=== PATIENT | female | born 1965 | race Caucasian/White ===

== ENCOUNTER → 2022-08-25 | Outpatient (CLI) | payer BC, SELFPAY ==
--- NOTE | 2022-08-25 10:19 | MRI_ITS ---
INDICATION: Palpable mass of left upper forehead marked with bb EXAMINATION: MRI - MR Face Neck Orbit WO/W Contrast TECHNIQUE: Multiplanar and multisequence MR images of the face pre and post IV contrast with vitamin E marker area at the left frontal area of clinical concern. IV Contrast Dosage and Agent: Unspecified volume and type of gadolinium. COMPARISON: None. FINDINGS: Vitamin E capsule noted over the left anterolateral frontal bone, slightly compressing the scalp without evidence of underlying superficial scalp soft tissue mass or edema. Underlying calvarium is normal in appearance with typical posterior lateral angulation of the bony calvarium at this point. No hyperostosis or periostitis. Underlying brain parenchyma is normal in appearance. No abnormal intraparenchymal mass. No abnormal dural thickening or abnormal enhancement. No hydrocephalus. MRI/Orbit Face Neck W/WO Contrast IMPRESSION: No evidence of scalp, osseous, brain parenchymal or meningeal mass at the area of clinical concern. Vitamin E marker overlies typical posterior lateral osseous convexity of the anterior frontal bone. If the palpable mass is a soft cutaneous mass then would consider ultrasound with standoff gel to avoid compression of the superficial soft tissues. Electronically Signed: Colby Parrish MD at 7:30 EDT ,
== END | disposition home or self-care (01) ==
LOC: MRI 10:18
PROVIDERS: PCP Physician Assistant; Referring Provider Plastic Surgery; Visit Provider Plastic Surgery
DX: D48.1 Neoplasm of uncertain behavior of connective and other soft tissue (principal)
CPT/HCPCS: 70543; A9575

== ENCOUNTER 2022-09-15 09:18 | Day surgery (SDC) | payer BC, SELFPAY ==
[2022-09-15] VITALS (8 sets, daily range): BP systolic 109–125; BP diastolic 67–79; PULSE 64–80; RESP 16–18; TEMP 36.1–36.5; O2SAT 94–98; BMI 29.9
--- NOTE | 2022-09-15 09:39 | PCM.HP.BLA ---
History and Physical Date of Admission: 09/15/22 The previous H&P of 08/30/22 is reviewed. There are no changes to the findings. Assessment & Plan Assessment/Plan (1) Neoplasm of uncertain behavior of skin: PLAN: Plan For excision lesion right cheek.
[2022-09-15] MEDS: Lidocaine 1% /Epi 1:100 9 ML, Sodium Bicarbonate 1 MEQ OPERA.SITE (10:10)
[2022-09-15] MEDS: Povidone Iodine 30 ML Opthalmic Sol 1 DRP (10:10)
--- NOTE | 2022-09-15 10:29 | DCINST_ITS ---
Discharge Instructions Diet Discharge Diet: No restrictions Activity Discharge Activity: Return to Normal Activity Dressing / Incision Additional Dressing/Incision Instructions:: Keep your back elevated (recliner position) for the next 2-3 nights to prevent bruising and swelling. Take the oral antibiotic (Keflex) 2 x a day until finished. Keep the steri-strips dry. Keep them in place until seen in the office. Follow Up Care Please Follow Up With: Huma Santos MD When: 1-2 weeks Test Results: Test results from this visit will be discussed in further detail at your follow- up appointment, if applicable. Discharge Plan Admission Attending Provider: Huma Santos Primary Care Provider: Maggie Hernandes Discharge Orders/Prescriptions Prescriptions: No Action NK Referrals / Follow Up: Maggie Hernandes PA [Primary Care Provider] - Disposition Disposition (needs filled in before D/C Order can be placed): Home, Self Care
--- NOTE | 2022-09-15 10:32 | PCM.OPRPT ---
Problems Associated Problem List Diagnoses (1) Neoplasm of uncertain behavior of skin: Report of Operation Date of Procedure: 09/15/22 Pre-Operative Diagnosis: Neoplasm uncertain behavior right cheek Post-Operative Diagnosis: same Surgery/Procedure Performed:: Excision lesion right cheek (1.3 cm) with intermediate closure Surgeon: Huma Santos Type of Anesthesia: Local Specimen's removed: above Estimated Blood Loss (mL): minimal Description of Procedure: The procedure of excision lesion right cheek was reviewed with the patient. She is marked in the preop holding area prior to surgery. The patient was brought to the operating room and placed on the operating room table in the supine position. The face is prepped and draped in the usual sterile fashion. 1% Xylocaine with epinephrine used for local anesthetic. Following this, the site is elliptically excised and passed off the operative field to be sent to pathology. Hemostasis is controlled with cautery. The incision is then closed in layers with 0 Vicryl suture in the subcutaneous tissue and dermis. Skin edges were approximated with a running subcuticular Vicryl suture. Further reinforcement the closure was done with interrupted Prolene suture. Dermabond and Steri-Strips were placed on the site. She tolerated the procedure well and was taken to the recovery area in an awake and stable condition. Needle and sponge counts are correct. Complications none
--- NOTE | 2022-09-15 10:43 | DCINST_ITS ---
Discharge Instructions Diet Discharge Diet: No restrictions Dressing / Incision Additional Dressing/Incision Instructions:: Keep your back elevated (recliner position) for the next 2-3 nights to prevent bruising and swelling. Take the oral antibiotic (Keflex) 2 x a day until finished. Keep the steri-strips dry. Keep them in place until seen in the office. Follow Up Care Please Follow Up With: Huma Santos MD Test Results: Test results from this visit will be discussed in further detail at your follow- up appointment, if applicable. Discharge Plan Admission Attending Provider: Huma Santos Primary Care Provider: Maggie Hernandes Discharge Orders/Prescriptions Prescriptions: New cephalexin 500 mg capsule 500 mg PO BID 7 Days Qty: 14 0RF Referrals / Follow Up: Maggie Hernandes PA [Primary Care Provider] - Disposition Disposition (needs filled in before D/C Order can be placed): Home, Self Care
--- NOTE | 2022-09-15 11:30 | LES_PTH ---
PATIENT: SYMONE CONNORS [place] [facility] [place][id number] AGE/SX: 56/F ROOM: RE09/15/[address]: Dr. Huma Santos MD : 1965 BED: DIS: 09/15/2022 SPEC #: [id number] RECD: 09/15/22 14:24 STATUS: VLAD KOTA #: [id number] GWEN: 09/15/22 11:[address]: Huma Santos DEPT: SURGICAL PATHOLOGY RECD BY: Lasha Conklin ENTERED: 09/18/22 08:12 SP TYPE: Lesion OTHR DR: MELISSA Enrique Tissues: Skin of face, NOS Procedures: Surgery Specimen Level IV HEADER OPERATION: Excision cheek lesion PRE-OP DIAGNOSIS: Neoplasm TISSUE SUBMITTED: Lesion right cheek MICROSCOPIC DIAGNOSIS Lesion of right cheek, biopsy: Intradermal nevus. Solar elastosis. AM:theodore 09/19/2022 MICROSCOPIC DESCRIPTION Slides are reviewed. GROSS DESCRIPTION Received in fixative is one container labeled with the patient's name and designated lesion right cheek. The specimen consists of a chung-white skin ellipse measuring 1.0 x 0.7 x 0.3 cm. The specimen is inked, serially sectioned and submitted entirely in one cassette. / SJ:theodore 09/18/2022 TC:1 CPT: 72134
== END 2022-09-15 10:48 | disposition home or self-care (01) ==
LOC: SDC 09:23 → AC 09:24
PROVIDERS: PCP Physician Assistant; Referring Provider Plastic Surgery; Visit Provider Plastic Surgery
PROC: (CPT 12051; principal; 2022-09-15 11:20)
DX: D23.39 Other benign neoplasm of skin of other parts of face (principal)
CPT/HCPCS: 12051; 11442; 88305